=== PATIENT | female | born 1970 | race Caucasian/White ===

== ENCOUNTER 2018-09-10 11:28 | Inpatient (IN) | payer OTHER ==
--- NOTE | 2018-09-10 12:08 | C.PDOC ---
History Of Present Illness Patient is a 48 year old female from [facility], with a PMHx of anxiety and depression, who presents to the ED with her for evaluation of worsening depression and suicidal thoughts x2days. Patient has a Hx of previous suicidal attempt 4 years ago. Patient is currently on unknown psychiatric medications. She denies any homicidal ideation, hallucinations, or other medical complaints. Time Seen by Provider: 09/10/18 11:41 Chief Complaint (Nursing): Psychiatric Evaluation History Per: Patient, Family History/Exam Limitations: no limitations Onset/Duration Of Symptoms: Days (2) Current Symptoms Are (Timing): Still Present Suicide/Self Injury Attempted (Context): None Associated Symptoms: Anxiety, Depression, Suicidal Thoughts. denies: Suicidal Plan Recent travel outside of the [place]: No Additional History Per: Patient Past Medical History Reviewed: Historical Data, Nursing Documentation, Vital Signs Vital Signs: Last Vital Signs Temp 99.3 F 09/10/18 11:30 Pulse 119 H 09/10/18 11:30 Resp 17 09/10/18 11:30 BP 117/81 09/10/18 11:30 Pulse Ox 99 09/10/18 11:30 Primary Care Provider: FAMILY PROVIDER,NO - Medical History PMH: Depression, Hyperlipidemia Surgical History: No Surg Hx Family History: States: No Known Family Hx - Social History Hx Alcohol Use: No Hx Substance Use: No - Immunization History Hx Tetanus Toxoid Vaccination: No Hx Influenza Vaccination: No Hx Pneumococcal Vaccination: No Review Of Systems Except As Marked, All Systems Reviewed And Found Negative. Constitutional: Negative for: Fever, Chills Cardiovascular: Negative for: Chest Pain Respiratory: Negative for: Shortness of Breath Psych: Positive for: Suicidal ideation. Negative for: Other (HI or hallucinations ) Physical Exam - Physical Exam Appears: Non-toxic, No Acute Distress, Other (flat affect) Skin: Warm, Dry Head: Atraumatic, Normacephalic Oral Mucosa: Moist Neck: Normal ROM, Supple Chest: Symmetrical, No Deformity Cardiovascular: Rhythm Regular, No Murmur Respiratory: Other (NARD) Gastrointestinal/Abdominal: Soft, No Tenderness Neurological/Psych: Oriented x3, Other (no acute intoxication, calm, cooperative) ED Course And Treatment - Laboratory Results Result Diagrams: 09/10/18 12:38 09/10/18 12:38 O2 Sat by Pulse Oximetry: 99 (on RA) Pulse Ox Interpretation: Normal Reevaluation Time: 13:20 Reassessment Condition: Unchanged (MED CLEAR FOR PSYCH. CRISIS NOTIFIED) Disposition Counseled Patient/Family Regarding: Studies Performed, Diagnosis - Disposition Disposition: HOSPITALIZED Disposition Time: 13:38 Condition: STABLE Forms: [facility] (Maldivian) - Clinical Impression Clinical Impression: Depression - Scribe Statement The provider has reviewed the documentation as recorded by the Liz Powell All medical record entries made by the Liz were at my direction and personally dictated by me. I have reviewed the chart and agree that the record accurately reflects my personal performance of the history, physical exam, medic al decision making, and the department course for this patient. I have also personally directed, reviewed, and agree with the discharge instructions and disposition.
[2018-09-10 12:53] LABS: BASO % 0.2 % (0.0-2.0); EOS # 0.1 K/uL (0.0-0.7); EOS % 0.9 % (0.0-4.0); HEMOGLOBIN 13.9 g/dL (11.0-16.0); LYMPH # 1.1 K/uL (1.0-4.3); LYMPH % 10.4 % (20.0-40.0); MEAN CELL VOLUME 83.7 fL (81.0-99.0); MEAN CORPUSCULAR HEMOGLOBIN 29.1 pg (27.0-31.0); MEAN CORPUSCULAR HGB CONC 34.8 g/dL (33.0-37.0); MEAN PLATELET VOLUME 7.5 fL (7.2-11.7); MONO # 0.7 K/uL (0.0-0.8); MONO % 6.3 % (0.0-10.0); NEUT # 8.8 K/uL (1.8-7.0); NEUT % 82.2 % (50.0-75.0); NRBC % 0.1 % (0.0-2.0); RBC 4.76 Mil/uL (3.80-5.20); RED CELL DISTRIBUTION WIDTH 13.7 % (11.5-14.5); WHITE BLOOD COUNT 10.7 K/uL (4.8-10.8)
[2018-09-10 12:59] LABS: SQUAMOUS EPITHIAL 1 /hpf (0-5); URINE BACTERIA RARE (<OCC); URINE BILIRUBIN NEGATIVE (NEGATIVE); URINE CLARITY Clear (Clear); URINE COLOR Straw (YELLOW); URINE GLUCOSE (UA) NORMAL (Normal); URINE LEUKOCYTE ESTERASE NEG Leu/uL (Negative); URINE PROTEIN NEGATIVE (NEGATIVE); URINE UROBILINOGEN NORMAL mg/dL (0.2-1.0)
[2018-09-10 13:02] LABS: URINE BLOOD 1+ (NEGATIVE)
[2018-09-10 13:03] LABS: ALB/GLOB RATIO 1.2 (1.0-2.1); ALBUMIN 4.4 g/dL (3.5-5.0); ALT/SGPT 52 U/L (9-52); AST/SGOT 59 U/L (14-36); BLOOD UREA NITROGEN 4 mg/dL (7-17); CALCIUM 9.5 mg/dl (8.6-10.4); GFR NON-AFRICAN AMERICAN > 60
[2018-09-10 13:13] LABS: BARBITURATES, UR NEGATIVE (NEGATIVE); BENZODIAZEPINES, UR NEGATIVE (NEGATIVE); OPIATES, UR NEGATIVE (NEGATIVE); PHENCYCLIDINE, UR NEGATIVE (NEGATIVE)
--- NOTE | 2018-09-10 18:04 | PCM.BM ---
<BishopRachelcandi Gan - Last Filed: 09/10/18 18:02> Treatment Plan Problems - Problems identified on initial assessmt suicidal ideation Date Initiated: 09/10/18 Time Initiated: 18:03 Assessment reference: NA Status: Monitor ineffective coping Date Initiated: 09/10/18 Time Initiated: 18:03 Assessment reference: NA Status: Active Treatment assets and liabiliti Patient Assests: cooperative, self-reliant, ADL independent, physically healthy, good support system, negotiates basic needs, cognitively intact Patient Liabilities: financial problems, relationship conflicts - Milieu Protocol Maintain good personal hygiene: daily Encourage regular showers, daily Remind patient to perform daily oral care, daily Assist patient to perform ADL's Maintain personal safety: every shift Educate patient to report safety concerns to staff, every shift Monitor environment for contraband/sharps Medication safety: Monitor for expected outcome, potential side effects: every shift, Assess barriers to learning: every shift, Assess readiness for medication education: every shift <Lesli Felix - Last Filed: 09/12/18 11:02> - Diagnosis (1) Bipolar affective disorder, depressed, severe Status: Acute Interventions: 09/12/18 11:02 * Assess/adjust medications daily and /or as needed * See patient on an individual basis 7x/week to assess level of manic behaviors and stability * Discuss risks, benefits, side effects and alternatives of medications * <Justine Thapa - Last Filed: 09/12/18 12:05> Family Contact Family involvement: Family/SO is involved Family contact: Patient agrees to contact Family contact name: Vern Mittal- - Goals for Treatment Patient goals for treatment: "I need the right medication." Discharge/Continuing Care - Education Needs Education Needs: Patient Medication, Patient Coping Skills - Discharge Discharge Criteria: Tolerates medication w/o severe side effects, Reduction of target symptoms Discharge to:: Home, With Family - Treatment Team Participation Discussed with Family/SO: No Was Patient/Family/SO present at Treatment Team Meeting: Yes
[2018-09-10] MEDS: Benzocaine/Menthol (Cepacol) Lozenge MT PRN (20:16)
[2018-09-11] MEDS: Benzocaine/Menthol (Cepacol) Lozenge MT PRN ×2 (02:24→22:19)
--- NOTE | 2018-09-11 10:30 | PCM.PSYCH ---
Initial Psychiatric Evaluation - Initial Psychiatric Evaluation Type of Admission: Voluntary Legal Status: Capacity Chief Complaint (in patient's own words): I was feeling depressed and suicidal. History of Present Illness and Precipitating Events: Patient is 48 y/o female who recently immigrated to [facility] from [facility] month ago (speaks only Arabic) presents to [facility] for depression and suicidal ideation. Patient lives with her , has no past psych hospitalization and treated for depression in [place]. Patient was unable to get refill of her medication [place] and her symptoms worsen. She states of wanting to kill herself because she has no reason to live, no motivation, feeling hopelessness, and good for nothing. She had a specific plan of SI to hang herself but prevented by the cable giving up and stopped her. She had previously attempted suicide with similar plan 1 year ago. Patient states depressed mood, feelings of hopelessness and helplessness. She also reports irritability, agitation, racing thoughts, poor concentration and lack of sleep. She denies any auditory or visual hallucination or other medical complaints. She denies any drinking and substance abuse. Past Psych. Hx: Depression PSH: denies PMH: Hyperlipidemia Family hx: history of depression, grandmother in patient psych. Social hx: denies ETOH, smoking or drug use Current Medications: Active Medications Generic Name Dose Route Start Last Admin Trade Name Freq PRN Reason Stop Dose Admin Acetaminophen 650 mg 09/10/18 19:12 09/10/18 20:14 Tylenol 325mg Tab PO 650 mg Q6 PRN Administration Pain, Mild (1-3) Benzocaine/Menthol 1 janell 09/10/18 19:10 09/11/18 02:24 Cepacol Sore Throat MT 1 janell Q4H PRN Administration Sore Throat Hydroxyzine HCl 25 mg 09/10/18 18:38 09/10/18 20:14 Atarax PO 25 mg Q6H PRN Administration Anxiety Pneumococcal Polyvalent Vaccine 0.5 ml 09/13/18 10:00 Pneumovax 23 Vaccine IM 09/13/18 10:01 .ONCE ONE Trazodone HCl 50 mg 09/10/18 22:00 Desyrel PO HS PRN Insomnia Past Psychiatric History - Past Psychiatric History Previous Treatment History: Inpatient Pertinent Medical Hx (Current Medical&Sleep Prob, Allergies): Allergies Allergy/AdvReac Type Severity Reaction Status Date / Time No Known Allergies Allergy Verified 09/10/18 11:30 Review of Systems - Review of Systems All systems: reviewed and no additional remarkable complaints except - Psychiatric Psychiatric: Anxiety, Irritability, Mood Swings, Suicidal Ideation Mental Status Examination - Personal Presentation Personal Presentation: Looks stated age - Affect Affect: Broad - Motor Activity Motor Activity: Calm - Reliability in Providing Information Reliability in Providing Information: Poor, due to altered mood - Speech Speech: Organized - Mood Mood: Depressed, Anxious - Formal Thought Process Formal Thought Process: Flight of ideas - Obsessions/Compulsions Obsessions: No Compulsions: No - Cognitive Functions Orientation: Person, Place, Situation, Time Sensorium: Alert Attention/Concentration: Attentive Abstract Thinking: Rosie Estimate of Intelligence: Below average Judgement: Imparied, as evidence by: Poor judgement, Imparied, as evidence by: Lack of insight into illness - Risk Risk: Suicidal, Diminished functioning - Strength & Assets Inventory Strength & Assets Inventory: Family support - Limitations Limitations: Living alone DSM 5 DX - DSM 5 DSM 5 Diagnosis: Bipolar disorder mixed severe without psychotic features - Recommended/Plan of Treatment Treatment Recommendations and Plan of Treatment: Bipolar disorder severe without psychotic features CBT Psychoeducation Supportive therapy and group therapy Depakote for mood Trazodone for insomnia Hydroxyzine for anxiety Paxil for depression Ativan for severe anxiety - Smoking Cessation Smoking Cessation Initiated: No
[2018-09-11] MEDS: Divalproex 250 mg DR Tab PO SCH ×2 (11:13→17:18)
[2018-09-12] MEDS: Divalproex 250 mg DR Tab PO SCH (09:29)
[2018-09-12] MEDS: Divalproex 500 mg DR Tab PO SCH (21:31)
[2018-09-13] MEDS: Divalproex 250 mg DR Tab PO SCH (09:13)
[2018-09-13] MEDS ORDERED: Pneumococcal 23-Valent Vaccine IM ONE (10:00)
--- NOTE | 2018-09-13 19:58 | PCM.PYCHPN ---
Psychiatric Progress Note - Psychiatric Progress Note Patient seen today, length of contact: 17 Mins Problems Identified/Issues Discussed: The pt is seen, chart reviewed, case is discussed with staff. The pt is compliant with medications and reports no side-effects. Symptoms are improving but needs more time to stabilize and to avoid relapse. Patient reports that she is no longer experiencing the panic attacks, nor the suicidal thoughts. She however reports that her sleep is still not steady. Pt attends groups and activities. Support given, psycho-education provided. After care discussed. Medication Change: No Medical Record Reviewed: Yes Mental Status Examination - Cognitive Function Orientation: Person, Place, Situation, Time - Mood Mood: Depressed, Anxious - Affect Affect: Broad - Formal Thought Process Formal Thought Process: No Impairment Goal/Treatment Plan - Goal/Treatment Plan Progress Toward Problem(s) and Goals/Treatment Plan: Continue medications Support and psychoeducation daily Attend groups and activities daily Individual therapy After care planning by ADRIAN and the team
[2018-09-13] MEDS: Divalproex 500 mg DR Tab PO SCH (21:09)
--- NOTE | 2018-09-14 00:49 | PCM.PYCHPN ---
Psychiatric Progress Note - Psychiatric Progress Note Patient seen today, length of contact: 15 Mins Patient Chief Complaint: I was feeling depressed and suicidal. Problems Identified/Issues Discussed: Patient was seen and evaluated, chart reviewed and discussed with the staff. Patient still reports irritability, agitation and racing thoughts. She also reports at times anxiety and panic attacks. She reports because of the these symptoms she is becoming depressed and sometimes she feels hopeless and helpless. She denies any auditory or visual hallucinations. She is taking medication but denies any side effects. Supportive therapy was given Medication Change: Yes Medical Record Reviewed: Yes Mental Status Examination - Cognitive Function Orientation: Person, Place, Situation, Time Memory: Intact Attention: WNL Concentration: Poor Association: WNL Fund of Knowledge: Poor - Mood Mood: Depressed, Anxious - Affect Affect: Broad - Speech Speech: Soft - Formal Thought Process Formal Thought Process: Flight of ideas - Suicidal Ideation Suicidal Ideation: No - Homicidal Ideation Homicidal Ideation: No Goal/Treatment Plan - Goal/Treatment Plan Need for Continued Stay: Remain at risks for inpatient hospitalization Progress Toward Problem(s) and Goals/Treatment Plan: Bipolar disorder severe without psychotic features CBT Psychoeducation Supportive therapy and group therapy Depakote for mood Trazodone for insomnia Hydroxyzine for anxiety Paxil for depression Ativan for severe anxiety
[2018-09-14] MEDS: Divalproex 250 mg DR Tab PO SCH (09:20)
[2018-09-14 09:43] VITALS: RESP 20
[2018-09-14] MEDS: Divalproex 500 mg DR Tab PO SCH (22:45)
[2018-09-15] MEDS: Divalproex 250 mg DR Tab PO SCH (09:34)
[2018-09-15] MEDS ORDERED: Aluminum Hydroxide/Magnesium Hydroxide Susp (30 mL) PO PRN (19:02)
[2018-09-15] MEDS: Divalproex 500 mg DR Tab PO SCH (22:02)
--- NOTE | 2018-09-15 22:45 | PCM.PYCHPN ---
Psychiatric Progress Note - Psychiatric Progress Note Patient seen today, length of contact: 15 Mins Patient Chief Complaint: "I was having trouble sleeping last night" Problems Identified/Issues Discussed: The pt is seen, chart reviewed, case is discussed with staff. Support and psychoeducation given, CBT and NM used briefly The pt is improving slowly but needs more time due to severity of symptoms and relapse risk. No SEs from medications, risks discussed. Reported having trouble staying asleep last night even after taking Trazodone After care discussed Medication Change: Yes (Increaase Trazodone to 100mg at HS) Medical Record Reviewed: Yes Mental Status Examination - Cognitive Function Orientation: Person, Place, Situation, Time Memory: Intact Attention: WNL Concentration: Poor Association: WNL Fund of Knowledge: Poor - Mood Mood: Depressed, Anxious - Affect Affect: Broad - Speech Speech: Soft - Formal Thought Process Formal Thought Process: Flight of ideas - Suicidal Ideation Suicidal Ideation: No - Homicidal Ideation Homicidal Ideation: No Goal/Treatment Plan - Goal/Treatment Plan Need for Continued Stay: Remain at risks for inpatient hospitalization Progress Toward Problem(s) and Goals/Treatment Plan: Continue the rest of the medications Support and psychoeducation daily Attend groups and activities daily Individual therapy After care planning by SW and the team
[2018-09-16 06:57] VITALS: BP 102/55; PULSE 77; TEMP 98.3; O2SAT 95
[2018-09-16] MEDS: Divalproex 250 mg DR Tab PO SCH (09:04)
--- NOTE | 2018-09-16 10:22 | PCM.PYCHDC ---
Mental Status Examination - Mental Status Examination Orientation: Person, Place, Situation, Time Memory: Intact Mood: Neutral Affect: Constricted Speech: Soft Attention: WNL Concentration: WNL Association: WNL Fund of Knowledge: WNL Formal Thought Process: No Impairment Description of patient's judgement and insight: good, fair Psychotic Thoughts and Behaviors: denies any AVH Suicidal Ideation: No Current Homicidal Ideation?: No Discharge Summary - Discharge Note Reason for Hospitalization: Patient is 48 y/o female who recently immigrated to [facility] from [place] month ago (speaks only Russian) presents to [facility] for depression and suicidal ideation. Patient lives with her , has no past psych hospitalization and treated for depression in [place]. Patient was unable to get refill of her medication due to [place] and her symptoms worsen. She states of wanting to kill herself because she has no reason to live, no motivation, feeling hopelessness, and good for nothing. She had a specific plan of SI to hang herself but prevented by the cable giving up and stopped her. She had previously attempted suicide with similar plan 1 year ago. Patient states depressed mood, feelings of hopelessness and helplessness. She also reports irritability, agitation, racing thoughts, poor concentration and lack of sleep. She denies any auditory or visual hallucination or other medical complaints. She denies any drinking and substance abuse. Past Psych. Hx: Depression PSH: denies PMH: Hyperlipidemia Family hx: history of depression, grandmother in patient psych. Social hx: denies ETOH, smoking or drug use Consultations:: List each consultation separately and include: 1. Reason for request. 2. Findings. 3. Follow-up Summary of Hospital Course include:: 1. Description of specific treatment plan utilized for patients during their course of treatmen. 2. Summarize the time- course for resolution of acute symptoms and/or regressed behaviors. 3. Describe issues identified and worked on during hospitalization. 4. Describe medication utilized. 5. Describe medical problems identified and treated. 6. Reassessment of suicide risk Summary of Hospital Course: Patient is 48 y/o female who recently immigrated to [facility] from [place] month ago (speaks only Russian) presents to [facility] for depression and suicidal ideation. Patient lives with her , has no past psych hospitalization and treated for depression in [place]. Patient was unable to get refill of her medication due to [place] and her symptoms worsen. She states of wanting to kill herself because she has no reason to live, no motivation, feeling hopelessness, and good for nothing. She had a specific plan of SI to hang herself but prevented by the cable giving up and stopped her. She had previously attempted suicide with similar plan 1 year ago. Patient states depressed mood, feelings of hopelessness and helplessness. She also reports irritability, agitation, racing thoughts, poor concentration and lack of sleep. She denies any auditory or visual hallucination or other medical complaints. She denies any drinking and substance abuse. Past Psych. Hx: Depression PSH: denies PMH: Hyperlipidemia Family hx: history of depression, grandmother in patient psych. Social hx: denies ETOH, smoking or drug use - Diagnosis (1) Bipolar affective disorder, depressed, severe Current Visit: Yes Status: Acute - Final Diagnosis (DSM 5) Condition upon Discharge: STABLE Disposition: HOME/ ROUTINE Follow-up Treatment Plan: Bipolar disorder severe without psychotic features CBT Psychoeducation Supportive therapy and group therapy Depakote for mood Trazodone for insomnia Hydroxyzine for anxiety Paxil for depression Ativan for severe anxiety Prescriptions/Medication Reconciliation: Divalproex [Depakote DR] 250 mg PO DAILY #30 tcp Divalproex [Depakote DR] 500 mg PO HS #30 tcp hydrOXYzine HCl [Atarax] 25 mg PO BID #60 tab PARoxetine [Paxil] 10 mg PO DAILY #30 tab traZODone [Desyrel] 100 mg PO HS PRN #30 tab PRN Reason: Insomnia
== END 2018-09-16 11:05 | disposition home or self-care (01) | DRG 753 ==
LOC: C.ER 11:28 → C.5E 13:39
PROVIDERS: ADMIT Psychiatry & Neurology Psychiatry; ATTEND Psychiatry & Neurology Psychiatry
PROC: GZ56ZZZ Individual Psychotherapy, Supportive (ICD-10-PCS; principal; 2018-09-10)
DX: F31.63 Bipolar disorder, current episode mixed, severe, without psychotic features (principal); R45.851 Suicidal ideations; E78.5 Hyperlipidemia, unspecified; F41.0 Panic disorder [episodic paroxysmal anxiety]; G47.00 Insomnia, unspecified